=== PATIENT | male | born 1960 | race Caucasian/White ===

== ENCOUNTER → 2020-02-17 10:14 | Outpatient (BNVA) | payer MEDICARE, SELFPAY | PROVIDERS: Referring Provider Neurological Surgery; Visit Provider Specialist | DX: M54.2 Cervicalgia (principal); M32.9 Systemic lupus erythematosus, unspecified; G43.019 Migraine without aura, intractable, without status migrainosus; G31.84 Mild cognitive impairment of uncertain or unknown etiology; M54.81 Occipital neuralgia | CPT/HCPCS: 64450; 99204; J1030; J3490 ==

== ENCOUNTER 2020-02-17 13:35 | Outpatient (CLI) | payer MEDICARE, SELFPAY ==
--- NOTE | 2020-02-17 13:45 | MR_ITS ---
WS: [id number] MRI HEAD WITHOUT CONTRAST TECHNIQUE: Sagittal T1, T2 axial, T2 axial FLAIR, axial and coronal T1 images, axial susceptibility w eighted imaging, axial diffusion weighted images, and coronal T2 images were obtained. CLINICAL INFORMATION: G43.909 Migraine, unspecified, not intractable, without s... COMPARISON: None. FINDINGS: No evidence of restricted diffusion to suggest acute ischemia. Ventricular system and basal cisterns are patent. No suspicious intracranial signal abnormalities. Mild parenchymal volume loss. No signifi cant small vessel disease. Normal posterior fossa. Normal vascular flow voids at the skull base. No e xtra-axial fluid collections. Paranasal sinuses are well aerated. Mild mucosal thickening in the mast oid air cells. No hemosiderin on susceptibly weighted images. Mild symmetric atrophy involving the temporal lobes and hippocampal formations. Normal optic chiasm a nd pituitary infundibulum. MR/MR head wo con* [id number] IMPRESSION: 1. No evidence of restricted diffusion to suggest acute ischemia. 2. No suspicious intracranial signal abnormalities. Mild parenchymal volume lo ss. 3. No hemosiderin on susceptibly weighted images. 4. Mild symmetric atrophy involving the temporal lobes and hippocampal formati ons.
== END 2020-02-17 13:36 | disposition home or self-care (01) ==
LOC: RADSHAW 13:40
PROVIDERS: PCP Family Medicine; Visit Provider Specialist
DX: G43.909 Migraine, unspecified, not intractable, without status migrainosus (principal); G31.9 Degenerative disease of nervous system, unspecified
CPT/HCPCS: 70551

== ENCOUNTER → 2021-02-01 13:20 | Outpatient (BNVA) | payer MEDICARE, SELFPAY | PROVIDERS: PCP Family Medicine; Visit Provider Specialist | DX: M54.81 Occipital neuralgia (principal); F41.9 Anxiety disorder, unspecified; F17.210 Nicotine dependence, cigarettes, uncomplicated | CPT/HCPCS: 64405; 96116; 99214; J1030; J3490 ==

== ENCOUNTER → 2024-10-08 09:58 | Outpatient (BNVA) | payer MEDICARE, SELFPAY | PROVIDERS: PCP Family Medicine; Visit Provider Internal Medicine Rheumatology | DX: M05.79 Rheumatoid arthritis with rheumatoid factor of multiple sites without organ or systems involvement (principal); Z79.899 Other long term (current) drug therapy; Z71.85 Encounter for immunization safety counseling | CPT/HCPCS: 36415; 80076; 82306; 82565; 85025; 85651; 86140; 86200; 86431; 86480; 86704; 86803; 87340; 99204 ==